=== PATIENT | female | born 1975 | race Caucasian/White ===

== ENCOUNTER 2020-12-20 20:09 | Emergency (ER) | payer SELFPAY ==
[~2020-12-20 20:09] MED LIST: BIRTH CONTROL; DUONEB 2.5-0.5M1 AMP NEB; FAMOTIDINE20 MG PO; NAPROXEN500 MG PO; ONDANSETRON ODT4 MG SL; PERCOCET 5-3251 EACH PO; ZYRTEC10 MG PO
[2020-12-21 04:15] LABS: BILIRUBIN NEGATIVE (NEGATIVE); BLOOD NEGATIVE Ery/uL (NEGATIVE); CLARITY CLEAR (CLEAR); COLOR YELLOW (YELLOW); GLUCOSE (U) NORMAL (NORMAL); LEUKOCYTES 2+ Leu/uL (NEGATIVE); NITRITE NEGATIVE (NEGATIVE); PROTEIN NEGATIVE (NEGATIVE); SPECIFIC GRAVITY 1.015 (1.001-1.030); UROBILINOGEN 0.2 mg/dL (0.2-1.0); pH 6.5 (5.0-9.0)
[2020-12-21 04:17] LABS: BASOPHIL 0.5 % (0-2); EOSINOPHIL 4.7 % (0-5); HCT 43.6 % (37.0-47.0); LYMPHOCYTE 53.8 % (15-48); MCH 28.7 pg (25.0-31.0); MCHC 32.1 g/dL (32.0-36.0); MCV 89.3 fL (78.0-100.0); MONOCYTE 11.1 % (0-12); MPV 11.1 fL (6.0-9.5); NEUTROPHIL 29.7 % (41-80); NRBC 0; PLT 164 K/uL (150-400); RBC 4.88 M/uL (4.20-5.40); RDW 13.6 % (11.5-14.0); WBC 4.2 K/uL (4.0-10.5)
[2020-12-21 04:23] LABS: BACTERIA TRACE
[2020-12-21 04:39] LABS: ALBUMIN 3.8 g/dL (3.4-5.0); ALKALINE PHOSHATASE 109 U/L (46-116); ALT 27 U/L (14-59); AST 26 U/L (15-37); BILIRUBIN - TOTAL 0.6 mg/dL (0.2-1.0); BUN 12 mg/dL (7-18); BUN/CREAT RATIO (CALC) 17.4 RATIO; C-REACTIVE PROTEIN < 0.20 mg/dL (<=0.90); CHLORIDE 105 mmol/L (98-107); CO2 (BICARBONATE) 31 mmol/L (21-32); CREATININE 0.69 mg/dL (0.51-0.95); GLOBULIN (CALCULATION) 3.9 g/dL; GLUCOSE 93 mg/dL (74-106); POTASSIUM 3.8 mmol/L (3.5-5.1); TOTAL PROTEIN 7.7 g/dL (6.4-8.2)
[2020-12-21] MEDS ORDERED: IBUPROFEN800 MG PO (07:35)
[2020-12-21] MEDS ORDERED: ONDANSETRON ODT4 MG SL (07:35)
[2020-12-21] MEDS ORDERED: CIPRO500 MG PO (07:35)
== END 2020-12-21 08:19 | disposition home or self-care (01) ==
LOC: FER 20:09
PROVIDERS: Emergency Medicine Emergency Medical Services
DX: B34.9 Viral infection, unspecified (principal); N30.00 Acute cystitis without hematuria; Z20.822 Contact with and (suspected) exposure to COVID-19; Z86.69 Personal history of other diseases of the nervous system and sense organs; Z90.710 Acquired absence of both cervix and uterus; Z88.2 Allergy status to sulfonamides; Z88.0 Allergy status to penicillin; Z88.5 Allergy status to narcotic agent
CPT/HCPCS: 36415; 80053; 81001; 85025; 86140; J1100; J1885; J7030; U0002